=== PATIENT | male | born 1985 | race African-American/Black ===

== ENCOUNTER 2016-09-27 05:58 | Emergency (ER) | payer OTHER ==
[~2016-09-27] VITALS: Ht 177.8 cm; Wt 108.0 kg
[2016-09-27 06:23] VITALS: BP 147/76
== END 2016-09-27 06:49 | disposition home or self-care (01) ==
LOC: EMS 06:00
DX: B34.9 Viral infection, unspecified (principal)
CPT/HCPCS: 99282